=== PATIENT | female | born 1995 | race Caucasian/White ===

== ENCOUNTER 2020-04-21 10:23 | Emergency (ER) | payer OTHER ==
[2020-04-21 12:00] LABS: BASOPHIL 0.9 % (0-2); EOSINOPHIL 2.1 % (0-5); HGB 12.9 g/dl (12.5-16.0); LYMPHOCYTE 29.1 % (15-48); MCH 28.5 pg (25.0-31.0); MCHC 33.1 g/dL (32.0-36.0); MCV 86.1 fL (78.0-100.0); MONOCYTE 9.6 % (0-12); MPV 10.4 fL (6.0-9.5); NEUTROPHIL 58.2 % (41-80); NRBC 0; PLT 181 K/uL (150-400); RBC 4.53 M/uL (4.20-5.40); RDW 12.9 % (11.5-14.0); WBC 7.6 K/uL (4.0-10.5)
[2020-04-21 12:17] LABS: ALBUMIN 4.3 g/dL (3.4-5.0); BILIRUBIN - TOTAL 0.5 mg/dL (0.2-1.0); BUN/CREAT RATIO (CALC) 12.1 RATIO; CREATININE 0.58 mg/dL (0.51-0.95); GLOBULIN (CALCULATION) 2.8 g/dL; POTASSIUM 3.9 mmol/L (3.5-5.1); TOTAL PROTEIN 7.1 g/dL (6.4-8.2)
[2020-04-21 12:39] LABS: BILIRUBIN 1+ mg/dL (NEGATIVE); BLOOD 3+ Ery/uL (NEGATIVE); CLARITY HAZY (CLEAR); COLOR ORANGE (YELLOW); GLUCOSE (U) NORMAL (NORMAL); LEUKOCYTES NEGATIVE Leu/uL (NEGATIVE); NITRITE POSITIVE (NEGATIVE); PROTEIN 2+ mg/dL (NEGATIVE); pH 7.5 (5.0-9.0)
[2020-04-21 12:42] LABS: BACTERIA 3+; URINARY RBC TNTC
[2020-04-21 12:43] LABS: SQUAMOUS EPITHELIAL CELLS 20-50
[2020-04-21] MEDS ORDERED: MACROBID100 MG PO (13:19)
== END 2020-04-21 13:34 | disposition home or self-care (01) ==
LOC: FER 10:23
PROVIDERS: Emergency Medicine
DX: O03.9 Complete or unspecified spontaneous abortion without complication (principal); J45.909 Unspecified asthma, uncomplicated; F17.210 Nicotine dependence, cigarettes, uncomplicated; Z88.2 Allergy status to sulfonamides; Z88.6 Allergy status to analgesic agent; Z91.040 Latex allergy status
CPT/HCPCS: 36415; 76817; 80053; 81001; 84702; 85025; 86850; 86900; 86901; 87076; 87088; 87186